=== PATIENT | male | born 1955 | race African-American/Black ===

== ENCOUNTER 2019-11-27 14:55 | Inpatient (IN) | payer MEDICARE, BC, OTHER ==
[~2019-11-27] VITALS: Ht 175.3 cm; Wt 81.2 kg
[2019-11-27 16:33] LABS: BASOPHILS % 0.9 % (0.0-2.0); HEMATOCRIT. 38.3 % (42.0-52.0); HEMOGLOBIN. 12.9 g/dL (14.0-18.0); MEAN CORPUSCULAR HEMOGLOBIN 29.5 pg (28.0-32.0); MEAN CORPUSCULAR VOLUME 87.8 fL (80.0-94.0); MEAN PLATELET VOLUME 9.3 fl (7.4-10.4); MONOCYTES % 6.3 % (2.0-8.0); NEUTROPHILS % 77.8 % (40.0-76.0); PLATELET 143 x1000/uL (130-400); RED BLOOD CELL COUNT 4.37 mill/uL (4.7-6.1); RED CELL DISTRIBUTION WIDTH 13.6 % (11.6-14.6)
[2019-11-27 16:41] LABS: CHLORIDE 102 mEq/L (98-107)
[2019-11-27] MEDS ORDERED: ASPIRIN 81MG TABLET PO ONE (17:15)
[2019-11-27] MEDS ORDERED: ONDANSETRON HCL 4MG/2ML INJ IV PRN (17:30)
[2019-11-27] MEDS ORDERED: ACETAMINOPHEN 325MG TABLET PO PRN (17:30)
[2019-11-27] MEDS ORDERED: DEXTROSE 50% WATER 50ML SYRINGE IV PRN (17:30)
[2019-11-27] MEDS: BLOOD SUGAR DIAGNOSTIC STRIP TEST SCH ×2 (18:37→21:00)
[2019-11-27] MEDS: INSULIN LISPRO 100 UNITS/ML SUBCUT SCH ×2 (18:39→23:26)
[2019-11-27 23:50] VITALS: BP 138/84
[2019-11-28] VITALS (7 sets, daily range): BP systolic 101–134; BP diastolic 57–77
[2019-11-28] MEDS ORDERED: INSU100I28 SQ (00:22)
[2019-11-28 06:37] LABS: BASOPHILS % 0.7 % (0.0-2.0); HEMATOCRIT. 36.2 % (42.0-52.0); HEMOGLOBIN. 12.2 g/dL (14.0-18.0); MEAN CORPUSCULAR HEMOGLOBIN 29.6 pg (28.0-32.0); MEAN CORPUSCULAR VOLUME 87.6 fL (80.0-94.0); MONOCYTES % 6.9 % (2.0-8.0); NEUTROPHILS % 67.4 % (40.0-76.0); PLATELET 144 x1000/uL (130-400); RED BLOOD CELL COUNT 4.13 mill/uL (4.7-6.1); RED CELL DISTRIBUTION WIDTH 13.7 % (11.6-14.6)
[2019-11-28] MEDS: BLOOD SUGAR DIAGNOSTIC STRIP TEST SCH ×4 (07:00→20:49)
[2019-11-28] MEDS: HEPARIN 5000 UNITS/ML VIAL SUBCUT SCH ×4 (09:00→20:48)
[2019-11-28 09:04] LABS: CHLORIDE 107 mEq/L (98-107)
[2019-11-28 09:12] LABS: LDL CHOLESTEROL 72 mg/dL (5-100)
[2019-11-28 09:13] LABS: HDL CHOLESTEROL 42 mg/dL (40-59)
[2019-11-28] MEDS: INSULIN LISPRO 100 UNITS/ML SUBCUT SCH ×4 (09:36→20:52)
[2019-11-28] MEDS: INSULIN GLARGINE UD 100 UNITS/ML SYR SUBCUT SCH (14:16)
[2019-11-29 00:24] VITALS: BP 104/59
[2019-11-29 04:00] VITALS: BP 141/78
[2019-11-29] MEDS: BLOOD SUGAR DIAGNOSTIC STRIP TEST SCH ×4 (06:25→21:00)
[2019-11-29 06:42] LABS: CHLORIDE 101 mEq/L (98-107)
[2019-11-29 06:52] LABS: BASOPHILS % 0.5 % (0.0-2.0); EOSINOPHILS % 3.5 % (0.0-5.0); HEMATOCRIT. 36.3 % (42.0-52.0); HEMOGLOBIN. 12.3 g/dL (14.0-18.0); LYMPHOCYTES % 15.8 % (20.0-50.0); MEAN CORPUSCULAR HEMOGLOBIN 29.9 pg (28.0-32.0); MEAN PLATELET VOLUME 9.7 fl (7.4-10.4); MONOCYTES % 8.3 % (2.0-8.0); NEUTROPHILS % 71.9 % (40.0-76.0); PLATELET 142 x1000/uL (130-400); RED BLOOD CELL COUNT 4.13 mill/uL (4.7-6.1); RED CELL DISTRIBUTION WIDTH 13.8 % (11.6-14.6)
[2019-11-29 08:00] VITALS: BP_SYST 114; BP_SYST 121; BP_SYST 142; BP_DIAS 63; BP_DIAS 70; BP_DIAS 77
[2019-11-29] MEDS: HEPARIN 5000 UNITS/ML VIAL SUBCUT SCH ×2 (09:00→21:00)
[2019-11-29] MEDS: INSULIN LISPRO 100 UNITS/ML SUBCUT SCH ×4 (09:04→21:00)
[2019-11-29] MEDS ORDERED: INSULIN GLARGINE UD 100 UNITS/ML SYR SUBCUT SCH (10:00)
[2019-11-29] MEDS: INSULIN GLARGINE UD 100 UNITS/ML SYR SUBCUT SCH (10:49)
[2019-11-29 12:00] VITALS: BP_SYST 108; BP_SYST 135; BP_SYST 139; BP_DIAS 67; BP_DIAS 74; BP_DIAS 79
[2019-11-29] MEDS ORDERED: SODIUM CHLORIDE 0.9% 1,000 ML IV ONE (12:15)
[2019-11-29 16:00] VITALS: BP_SYST 118; BP_SYST 128; BP_SYST 134; BP_DIAS 63; BP_DIAS 67; BP_DIAS 71
[2019-11-29 19:55] VITALS: BP_SYST 122; BP_SYST 127; BP_DIAS 62; BP_DIAS 64; BP_DIAS 70
[2019-11-30 03:24] VITALS: BP 136/82
[2019-11-30] MEDS: BLOOD SUGAR DIAGNOSTIC STRIP TEST SCH ×2 (06:06→11:57)
[2019-11-30 06:56] LABS: BASOPHILS % 0.7 % (0.0-2.0); HEMATOCRIT. 32.9 % (42.0-52.0); HEMOGLOBIN. 11.2 g/dL (14.0-18.0); LYMPHOCYTES % 26.7 % (20.0-50.0); MEAN CORPUSCULAR HEMOGLOBIN 29.6 pg (28.0-32.0); MEAN CORPUSCULAR VOLUME 87.2 fL (80.0-94.0); MEAN PLATELET VOLUME 9.2 fl (7.4-10.4); MONOCYTES % 8.9 % (2.0-8.0); NEUTROPHILS % 58.7 % (40.0-76.0); PLATELET 144 x1000/uL (130-400); RED BLOOD CELL COUNT 3.78 mill/uL (4.7-6.1); RED CELL DISTRIBUTION WIDTH 13.3 % (11.6-14.6)
[2019-11-30] MEDS: INSULIN LISPRO 100 UNITS/ML SUBCUT SCH ×2 (07:37→12:05)
[2019-11-30 08:00] VITALS: BP 135/76
[2019-11-30 08:11] LABS: CHLORIDE 103 mEq/L (98-107)
[2019-11-30] MEDS: HEPARIN 5000 UNITS/ML VIAL SUBCUT SCH (09:00)
[2019-11-30] MEDS ORDERED: INSULIN GLARGINE UD 100 UNITS/ML SYR SUBCUT SCH (10:00)
[2019-11-30] MEDS ORDERED: LANTUSUD SUBCUT (12:11)
[2019-11-30 12:44] VITALS: BP 135/76
== END 2019-11-30 16:15 | disposition home or self-care (01) | DRG 73 ==
LOC: ER 15:16 → 6WST 17:23 → ENRESERV 20:46
PROVIDERS: ADMIT Internal Medicine; ATTEND Internal Medicine
DX: E11.43 Type 2 diabetes mellitus with diabetic autonomic (poly)neuropathy (principal); I21.A1 Myocardial infarction type 2; I69.354 Hemiplegia and hemiparesis following cerebral infarction affecting left non-dominant side; E86.0 Dehydration; D64.9 Anemia, unspecified; E11.65 Type 2 diabetes mellitus with hyperglycemia; E78.5 Hyperlipidemia, unspecified; I25.10 Atherosclerotic heart disease of native coronary artery without angina pectoris; K31.84 Gastroparesis; I10 Essential (primary) hypertension; K52.9 Noninfective gastroenteritis and colitis, unspecified; Z79.4 Long term (current) use of insulin; Z88.0 Allergy status to penicillin
CPT/HCPCS: 36415; 71045; 80048; 80053; 80061; 82962; 83036; 83735; 83880; 84484; 85025; 93005; 93306; 93880; 97162; 97165; 99285; C1893; J1644; J1815